=== PATIENT | female | born 1950 | race Caucasian/White ===

== ENCOUNTER 2024-05-14 09:30 | Day surgery (SDC) | payer OTHER ==
[~2024-05-14] VITALS: Ht 144.8 cm; Wt 45.3 kg
[2024-05-14] VITALS (15 sets, daily range): BP systolic 73–159; BP diastolic 45–98
[~2024-05-14 09:30] MED LIST: ALBU90OI61 INH; ALENDRONATE SOD35 MG PO; AMLO5 PO; AZIT500 PO; BENZ100A PO; CODEINE-GUAIFE120 ML PO; COTEMPLA XR-OD8.6 MG PO; DESV50 PO; FLUT1DIS2 INH; LISI5 PO; PRED20 PO; VENL150ER PO
[2024-05-14] MEDS ORDERED: Ropivacaine 0.5% HCl/Pf 123.125 MG,EPINEPHrine HCL 0.25 MG,Ketorolac Tromethamine 15 MG... INFIL SCH (09:45)
[2024-05-14] MEDS ORDERED: Acetaminophen 500 MG Tab PO SCH ×2 (09:45→16:00)
[2024-05-14] MEDS ORDERED: Lactated Ringer's 1,000 ML IV SCH ×2 (09:45→11:50)
[2024-05-14] MEDS ORDERED: OxyCODONE HCL 10 MG TABCR PO SCH (09:45)
[2024-05-14] MEDS ORDERED: Chlorhexidine Mouth Care 15 ML UDC MT SCH (09:45)
[2024-05-14] MEDS ORDERED: Tranexamic Acid 100 ML IV SCH (09:45)
[2024-05-14] MEDS ORDERED: CeFAZolin Sodium 2,000 MG in NS 100 ML IV SCH ×2 (09:45→22:00)
[2024-05-14] MEDS ORDERED: FentaNYL Citrate 50 MCG/ML 2 ML Injection ONE (10:09)
[2024-05-14] MEDS ORDERED: ANORO ELLIPTA1 EACH INH (11:05)
[2024-05-14] MEDS ORDERED: GABA300 PO (11:06)
[2024-05-14] MEDS ORDERED: Norco 5-325 Ta1 EACH PO (11:07)
[2024-05-14] MEDS ORDERED: Hair, Skin & N1 EACH PO (11:07)
[2024-05-14] MEDS ORDERED: VIT D3-VIT K21 EACH PO (11:07)
[2024-05-14] MEDS ORDERED: propofoL 0 ML IV ONE (11:31)
[2024-05-14] MEDS ORDERED: Lidocaine HCl 2% 20 ML MDV ONE (11:34)
[2024-05-14] MEDS ORDERED: DiphenhydrAMINE HCL 25 MG Cap PO PRN (11:45)
[2024-05-14] MEDS ORDERED: FLU VACC TS2024-25(6MOS UP)/PF 45 MCG/0.5 ML SYRINGE IM SCH (11:45)
[2024-05-14] MEDS ORDERED: HYDROmorphone HCl/Pf 1MG SYR IV PRN (11:45)
[2024-05-14] MEDS ORDERED: Magnesium Hydroxide Conc 10 ML UDC PO PRN (11:50)
[2024-05-14] MEDS ORDERED: Ondansetron HCl 2 MG / ML 2ML Vial IV PRN (11:50)
[2024-05-14] MEDS ORDERED: OxyCODONE HCL 5 MG TAB PO PRN ×2 (11:50)
[2024-05-14] MEDS ORDERED: Metoclopramide HCl 5MG / ML 2ML Vial IV PRN (11:50)
[2024-05-14] MEDS ORDERED: Bisacodyl 10 MG Supp PR PRN (11:55)
[2024-05-14] MEDS ORDERED: Promethazine HCl 25 MG Tab PO PRN (11:55)
[2024-05-14] MEDS ORDERED: Ketorolac Tromethamine 15mg Vial IV SCH (12:00)
[2024-05-14] MEDS ORDERED: Ipratropium/Albuterol SulF 2.5-0.5MG/3 ML Amp INH SCH (12:05)
[2024-05-14] MEDS ORDERED: Misc. Capsule PO SCH (12:05)
[2024-05-14] MEDS ORDERED: propofoL 40 ML IV ONE ×2 (12:18→14:43)
[2024-05-14] MEDS ORDERED: Bupivacaine 0.5% HCl 5 MG/ML 30MLVIAL ONE (12:52)
--- NOTE | 2024-05-14 13:23 | NUR ---
PATIENT TO BR TO VOID. PATIENTS STATES SHE WAS ABLE TO VOID.
--- NOTE | 2024-05-14 13:47 | NUR ---
DENTURES LEFT IN PER DR SNELL REQUEST. GLASSES BROUGHT TO PACU FOR SAFE KEEPING.
[2024-05-14] MEDS ORDERED: Gabapentin 300 MG Cap PO SCH (14:00)
[2024-05-14] MEDS ORDERED: Ondansetron HCl 2 MG / ML 2ML Vial ONE (15:53)
[2024-05-14] MEDS ORDERED: Lactated Ringer's 1,000 ML IV ONE (16:00)
--- NOTE | 2024-05-14 19:30 | NUR ---
SHIFT SUMMARY POD 0 S/O RIGHT TOTAL KNEE. AQUACEL DRESSING TO RIGHT KNEE CDI WITH POLAR VIRGILIO IN PLACE. DENIES PAIN; UNABLE TO WIGGLE TOES R/T SPINAL. TOLERATING PO INTAKE. MEDICATED PER EMAR AND ORDERS. IV SL. AWAITING POST-OP VOID AND AMBULATION. PT RESTING IN BED WITH CALL LIGHT IN REACH. REPORT GIVEN TO NIGHT RN
[2024-05-14] MEDS ORDERED: Docusate Sodium 100 MG Cap PO SCH (21:00)
[2024-05-15 01:16] VITALS: BP 125/74
[2024-05-15 04:23] VITALS: BP 128/77
[2024-05-15 04:27] VITALS: BP 131/68
--- NOTE | 2024-05-15 04:43 | NUR ---
SHIFT SUMMARY PT POD 0 RIGHT TOTAL KNEE. PT HAS RESTED T/O THE NIGHT, PAIN HAS BEEN WELL MANAGED WITH MEDS PER EMAR. PT TOLERATING PO INTAKE, AMBULATING AND VOIDING. SURGICAL SITE WNL. VITALS STABLE. BED IN LOWEST POSITION, CALL LIGHT WITHIN REACH.
[2024-05-15 04:44] LABS: BASOPHILS ABSOLUTE AUTO 0.03 K/mm3 (0.00-0.23); BASOPHILS PERCENT AUTO 0 % (0-2); EOSINOPHILS ABSOLUTE AUTO 0.17 K/mm3 (0.00-0.68); EOSINOPHILS PERCENT AUTO 2 % (0-6); Hematocrit 32.8 % (33.0-51.0); Hemoglobin 11.1 g/dL (11.5-16.0); IMMATURE GRAN ABSOLUTE AUTO 0.02 K/mm3 (0.00-0.10); IMMATURE GRAN PERCENT AUTO 0 % (0-1); LYMPHOCYTES ABSOLUTE AUTO 1.81 K/mm3 (0.84-5.20); LYMPHOCYTES PERCENT AUTO 22 % (21-46); MONOCYTES ABSOLUTE AUTO 0.72 K/mm3 (0.16-1.47); MONOCYTES PERCENT AUTO 9 % (4-13); Mean Corpuscular HGB 31.5 pg (26.0-34.0); Mean Corpuscular HGB Conc 33.8 g/dL (31.5-36.5); Mean Corpuscular Volume 93 fL (80-100); Mean Platelet Volume 9.6 fL (9.1-12.4); NEUTROPHILS ABSOLUTE AUTO 5.49 K/mm3 (1.96-9.15); NEUTROPHILS PERCENT AUTO 67 % (41-73); Platelet Count 222 K/mm3 (150-400); RDW Coefficient Variation 13.2 % (11.7-14.2); RDW Standard Deviation 44.9 fL (35.1-46.3); Red Blood Cell Count 3.52 M/mm3 (3.80-5.20); White Blood Cell Count 8.24 K/mm3 (4.00-11.30)
[2024-05-15 05:17] LABS: Bun/Creatinine Ratio 17.1 (12.0-20.0); Calcium, Blood 8.8 mg/dL (8.5-10.1); Creatinine, Blood 1.11 mg/dL (0.40-1.00); Potassium, Blood 4.6 mmol/L (3.5-5.5)
[2024-05-15] MEDS ORDERED: ASPI81CH PO (06:36)
[2024-05-15 07:29] VITALS: BP 138/81
[2024-05-15] MEDS ORDERED: Misc. Tablet PO SCH (09:00)
[2024-05-15] MEDS ORDERED: Aspirin 81 MG Chew PO SCH (09:00)
[2024-05-15] MEDS ORDERED: Lisinopril 5 MG Tab PO SCH (09:00)
[2024-05-15] MEDS ORDERED: Venlafaxine HCl 75 MG CapCR PO SCH (09:00)
[2024-05-15] MEDS ORDERED: Multivitamins/Minerals TAB PO SCH (09:00)
--- NOTE | 2024-05-15 09:50 | NUR ---
DISCHARGE INSTRUCTIONS PT HAS WORKED w/ THERAPY. PAIN WELL CONTROLLED. EATING, DRINKING, & VOIDING WELL. WAITING FOR FRIEND TO ARRIVE FOR RIDE HOME.
--- NOTE | 2024-05-15 10:45 | NUR ---
Pt. is sitting up in a recliner when she welcomes my visit. Pt. initally didn't feel a spiritual care visit was appropriate, but through a life review and theraputic listening, rapport is established. Pt. displayed evidence of having been encouraged and uplifted by the spiritual care visit. Pt. verbalized expectation that she would discharge home as soon as her ride could be arranged.
--- NOTE | 2024-05-15 10:49 | NUR ---
ESCORTED OUT VIA w/ POLAR PACK & DRSGS.
== END 2024-05-15 11:51 | disposition home or self-care (01) ==
LOC: ORSCMMR 09:30 → ORD 10:00 → ORSCMMR 10:00 → ORD 11:00 → ORSCMMR 11:00 → SURS 16:27 → ORSCMMR 05-15 11:51
PROVIDERS: Orthopaedic Surgery
PROC: 0SRC0JA Replacement of Right Knee Joint with Synthetic Substitute, Uncemented, Open Approach (ICD-10-PCS; principal; 2024-05-14 11:00)
DX: M17.11 Unilateral primary osteoarthritis, right knee (principal); I10 Essential (primary) hypertension; J44.9 Chronic obstructive pulmonary disease, unspecified; Z87.891 Personal history of nicotine dependence; Z85.118 Personal history of other malignant neoplasm of bronchus and lung; Z79.899 Other long term (current) drug therapy
CPT/HCPCS: 36415; 73560-RT; 80048; 85025; 94640; 94664; 94760; 97110; 97116; 97162; 97530; A9270; C1776; J0171; J0690; J0735; J1885; J2405; J2704; J2795; J3010; J7120